=== PATIENT | female | born 1925 | race Caucasian/White ===

== ENCOUNTER 2016-06-30 12:02 | Inpatient (IN) | payer BC ==
--- NOTE | 2016-06-30 12:45 | PDOC ---
History of Present Illness - General History Source: Patient, Family Exam Limitations: No Limitations - History of Present Illness Initial Comments: 06/30/16 14:56 The patient is a 89 year old female, with a significant past medical history of hypertension and hyperlipidemia, who presents to the emergency department with abdominal pain since yesterday and rectal bleed since this morning. As per daughter the patients stool was brown with dark red mixed in it. She reports left lower abdominal pain that worsened today. Patient reports nausea but denies vomiting. She denies palpitations, chest pain, shortness of breath, headache, diaphoresis and dizziness. She denies fever, chills, nausea, vomit, diarrhea and constipation. She denies dysuria, frequency, urgency and hematuria on ASA but not on other a/c. no recent travel or sick contacts. <Estrellita Soto - Last Filed: 06/30/16 19:17> - General History Source: Patient Exam Limitations: No Limitations - History of Present Illness Travel History: No <David Laboy - Last Filed: 07/01/16 09:19> - General Chief Complaint: Rectal Bleed Stated Complaint: RECTAL BLEEDING Time Seen by Provider: 06/30/16 12:42 Past History <Estrellita Soto - Last Filed: 06/30/16 19:17> - Past Medical History HTN: Yes Hypercholesterolemia: Yes Suicide Attempt (Hx): No Other medical history: ARTHRITIS - Surgical History Abdominal Surgery: Yes Cholecystectomy: Yes - Immunization History Immunization Up to Date: Yes - Psycho/Social/Smoking Cessation Hx Anxiety: No Suicidal Ideation: No Smoking History: Never smoked Have you smoked in the past 12 months: No Hx Alcohol Use: No Drug/Substance Use Hx: No Substance Use Type: None <David Laboy - Last Filed: 07/01/16 09:19> - Past Medical History Allergies/Adverse Reactions: Allergies Allergy/AdvReac Type Severity Reaction Status Date / Time No Known Allergies Allergy Verified 06/30/16 12:12 Home Medications: Ambulatory Orders Atenolol [Tenormin -] 50 mg PO DAILY 06/16/14 Hydralazine HCl 25 mg PO BID 06/16/14 Methotrexate [Mexate -] 5 tab PO Q7D 06/16/14 Prednisone [Deltasone -] 2.5 mg PO BID 06/16/14 Folic Acid 1 mg PO DAILY 12/29/15 Tramadol HCl 50 mg PO BID PRN 12/29/15 Aspirin [ASA -] 81 mg PO DAILY 06/30/16 Review of Systems - Review of Systems Able to Perform ROS?: Yes Comments:: 06/30/16 14:57 CONSTITUTIONAL: No reported: Fever, Chills, Diaphoresis, Generalized Weakness, Malaise, Loss of Appetite HEENT: No reported: Rhinorrhea, Nasal Congestion, Throat Pain, Throat Swelling, Difficulty Swallowing, Mouth Swelling, Ear Pain, Eye Pain, Visual Changes CARDIOVASCULAR: No reported: Chest Pain, Syncope, Palpitations, Irregular Heart Rate, Lightheadedness, Peripheral Edema RESPIRATORY: No reported: Cough, Shortness of Breath, SOB with Exertion, Orthopnea, Wheezing , Stridor, Hemoptysis GASTROINTESTINAL: Reported: Abdominal pain, nausea, hematochezia No reported: Abdominal Distension, Vomiting, Diarrhea, Constipation, Melena GENITOURINARY: No reported: Dysuria, Frequency, Urgency, Hesitancy, Flank Pain, Genital Pain MUSCULOSKELETAL: No reported: Myalgia, Arthralgia, Joint Swelling, Back pain, Neck Pain SKIN: No reported: Rash, Itching, Pallor HEMATOLOGIC/IMMUNOLOGIC: No reported: Easy Bleeding, Easy Bruising, Lymphadenopathy, Frequent infections ENDOCRINE: No reported: Unexplained Weight Gain, Unexplained Weight Loss, Heat Intolerance , Cold Intolerance NEUROLOGIC: No reported: Headache, Focal Weakness, Paresthesias, Vertigo, Lightheadedness, Unsteady Gait, Seizure, Mental Status Changes, Incontinence PSYCHIATRIC: No reported: Anxiety, Depression <Estrellita Soto - Last Filed: 06/30/16 19:17> *Physical Exam - Vital Signs Last Vital Signs Temp Pulse Resp BP Pulse Ox 97.2 F L 58 L 20 121/56 100 06/30/16 12:10 06/30/16 12:10 06/30/16 12:10 06/30/16 12:10 06/30/16 12:10 - Physical Exam Comments: 06/30/16 14:57 GENERAL: The patient is awake, alert, and fully oriented, Nontoxic - in no acute distress. HEAD: Normocephalic, atraumatic. EYES: extraocular movements intact, sclera anicteric, conjunctiva clear. ENT: Normal voice, Moist mucous membranes. NECK: Normal range of motion, No JVD LUNGS: Breath sounds equal, clear to auscultation bilaterally. No wheezes, no rhonchi, no rales. HEART: Regular rate and rhythm, normal S1 and S2 without murmur, rub or gallop. ABDOMEN: +mild lower abdominal tenderness. Soft, normoactive bowel sounds. No guarding, no rebound. No masses. No CVA tenderness EXTREMITIES: Normal range of motion, no edema. No clubbing or cyanosis. No cords , erythema, or tenderness. NEUROLOGICAL: No facial asymmetry, Normal speech, normal gait. PSYCH: Normal mood, normal affect. SKIN: Warm, Dry, normal turgor. Rectal exam: maroon like stool, No hemorrhoids <Estrellita Soto - Last Filed: 06/30/16 19:17> - Vital Signs Last Vital Signs Temp Pulse Resp BP Pulse Ox 97.2 F L 58 L 20 121/56 100 06/30/16 12:10 06/30/16 12:10 06/30/16 12:10 06/30/16 12:10 06/30/16 12:10 <David Laboy - Last Filed: 07/01/16 09:19> Heart Score/ECG Review - ECG Impressions Comment:: 06/30/16 19:31 Twelve-lead EKG was performed and reviewed by me. There is normal sinus rhythm with a normal rate. PACs noted The axis is normal. Short OH interval There is normal R wave progression There are no ST or T wave abnormalities. <David Laboy - Last Filed: 07/01/16 09:19> ED Treatment Course - LABORATORY CBC & Chemistry Diagram: 06/30/16 12:55 06/30/16 12:55 - ADDITIONAL ORDERS Additional order review: Laboratory Results 06/30/16 06/30/16 06/30/16 12:55 12:55 12:55 INR 1.04 Sodium 135 L Potassium 4.2 Chloride 97 L Carbon Dioxide 26 Anion Gap 12 BUN 27 H Creatinine 1.3 H Creat Clearance w eGFR 38.57 Random Glucose 170 H D Calcium 9.6 Total Bilirubin 0.8 AST 25 ALT 22 D Alkaline Phosphatase 60 Total Protein 6.7 Albumin 3.9 D Blood Type O POSITIVE Antibody Screen Negative 06/30/16 12:55 RBC 4.08 MCV 100.4 H MCHC 33.6 RDW 14.6 MPV 11.0 Neutrophils % 91.5 H D Lymphocytes % 4.0 L D Monocytes % 4.0 Eosinophils % 0.0 D Basophils % 0.5 - RADIOLOGY Radiology Studies Ordered: 06/30/16 18:16 EXAM#: CT/ABDOMEN PELVIS CT WITH CONTR Abdomen and pelvis CT with intravenous contrast Clinical information: left lower quadrant pain, rectal bleeding In comparison to a previous CT study of 12/30/2015 interval development of concentric continuous wall edema is noted involving the ascending, transverse and descending segments of the colon consistent with acute colitis. There is mild pericolonic edema. Equivocal mild involvement of the sigmoid colon is noted. There is again visualization of extensive sigmoid diverticulosis without evidence of acute diverticulitis. There has been interval resolution of a small amount of free fluid within the pelvic cul-de-sac. Apparent mildly increased common bile duct dilatation is noted with a current diameter of 1.2 cm, previously 0.9 cm. No gross choledocholithiasis is identified. There is mild intrahepatic biliary tract dilatation which is also probably mildly increased. As on the prior study the patient is status post cholecystectomy. The remainder of the exam demonstrates no definite interval change. No evidence of pneumoperitoneum or bowel obstruction. Stable 1 cm left adrenal adenoma. The liver, spleen, pancreas, right adrenal gland is no discrete abnormality. 6 cm left renal cortical cyst containing a thin curvilinear calcification. 2.7 cm simple right renal cortical cyst. No aortic aneurysm. Minimal to mild multilevel chronic stable lumbar vertebral body compression fractures without bony retropulsion. Impression: Acute colitis is identified as discussed. In comparison to a prior CT exam of 12/30/2015 there has been apparent mildly increased intrahepatic and extrahepatic biliary tract dilatation. Less likely this apparent change may be artifactual given that the prior study was performed without intravenous contrast. Consider MRI/ MRCP evaluation. Status post cholecystectomy as on the prior exam. Cardiomegaly. <Estrellita Soto - Last Filed: 06/30/16 19:17> - LABORATORY CBC & Chemistry Diagram: 07/01/16 06:00 07/01/16 06:00 <David Laboy - Last Filed: 07/01/16 09:19> Medical Decision Making - Medical Decision Making 06/30/16 18:32 A page was placed to Dr. Poon at his service. 06/30/16 18:48 A second page was placed to Dr. Poon at his service. Awaiting for a call back. 06/30/16 19:04 Third page was placed to Dr. Poon at his service, he was paged at 3 different numbers with no response. Awaiting a call back. 06/30/16 19:[address] Poon. <Estrellita Soto - Last Filed: 06/30/16 19:17> - Medical Decision Making 06/30/16 13:40 89-year-old female hx of htn, hl, presents with 1 day of LLQ pain assoicated with rectal bleeding/maroon like stool since this morning - the patient denies any fevers, chills endorses nausea but denies any vomiting. On exam the patient has mild left lower quadrant tenderness, otherwise in no acute distress the patient's stool is maroon colored, guaiac pending. We'll obtain a CT of the abdomen to rule out diverticulosis. Patient does have a leukocytosis on her blood work Will give the patient's gentle hydration as well as small dose of morphine for pain control 06/30/16 18:15 pts abdomen c/w acute colitis will give flagyl levaquin and admit for further management There was also mild diltation of intrahepqatic and extrahepatic bilari tract diliation - will have GI assess patient regarding further testing/imaging. will page dr. arias regarding admission 06/30/16 19:17 case was discussed with dr. dominguez agreed with admission requested GI consult - consult placed for dr. echols Case discussed in detail with admitting physician including history, physical exam and ancillary studies. Admitting physician has assumed care for the patient, will follow all pending diagnostics and will complete the evaluation and treatment. A portion of this note was documented by kandis payan under my direction. I have reviewed the details of the note, within reason, and agree with the documentation with the following case summary and management plan written by me <David Laboy - Last Filed: 07/01/16 09:19> *DC/Admit/Observation/Transfer - Attestations Scribe Attestion: 06/30/16 14:57 Documentation prepared by KANDIS Snider, acting as general medical practitioner for David Laboy MD. <Estrellita Soto - Last Filed: 06/30/16 19:17> - Discharge Dispostion Admit: Yes <David Laboy - Last Filed: 07/01/16 09:19> Diagnosis at time of Disposition: Colitis - Referrals
[2016-06-30 13:03] LABS: BASOPHIL 0.5 % (0-2.0); MCH 33.7 pg (25.7-33.7); MCHC 33.6 g/dl (32.0-36.0); MEAN CELL VOLUME 100.4 fl (80-96); NEUTROPHILS 91.5 % (42.8-82.8); PLATELET COUNT 191 K/MM3 (134-434); RDW 14.6 % (11.6-15.6); WHITE BLOOD COUNT 14.5 K/mm3 (4.0-10.0)
[2016-06-30 13:17] LABS: INR 1.04 (0.82-1.09); PROTHROMBIN TIME (PATIENT) 11.5 SEC (9.98-11.88)
[2016-06-30 13:25] LABS: ALBUMIN 3.9 g/dl (3.4-5.0); BILIRUBIN,TOTAL 0.8 mg/dL (0.2-1.0); CALCIUM 9.6 mg/dL (8.5-10.1); CREATININE 1.3 mg/dL (0.55-1.02)
[2016-06-30 13:27] LABS: TOT PROT 6.7 g/dl (6.4-8.2)
[2016-06-30] MEDS ORDERED: SODIUM CHLORIDE 500 ML IV STA (13:39)
[2016-06-30] MEDS ORDERED: morphine CARPU-JECT 2 MG/1 ML DISP.SYRIN IVPUSH ONE (13:40)
[2016-06-30] MEDS ORDERED: ONDANSETRON 4 MG/2 ML VIAL IVPB ONE (13:41)
[2016-06-30] MEDS ORDERED: ONDANSETRON 4 MG/2 ML VIAL ONE (14:59)
[2016-06-30] MEDS ORDERED: morphine CARPU-JECT 2 MG/1 ML DISP.SYRIN ONE (14:59)
--- NOTE | 2016-06-30 16:14 | EKG ---
Test Reason : Blood Pressure : / mmHG Vent. Rate : 060 BPM Atrial Rate : 060 BPM P-R Int : 108 ms QRS Dur : 070 ms QT Int : 444 ms P-R-T Axes : 043 021 040 degrees QTc Int : 444 ms SINUS RHYTHM WITH SHORT CA WITH PREMATURE ATRIAL COMPLEXES OTHERWISE NORMAL ECG WHEN COMPARED WITH ECG OF 16-JUN-2014 17:29, PREMATURE ATRIAL COMPLEXES ARE NOW PRESENT CRITERIA FOR SEPTAL INFARCT ARE NO LONGER PRESENT ST NO LONGER DEPRESSED IN ANTERIOR LEADS NONSPECIFIC T WAVE ABNORMALITY, IMPROVED IN ANTERIOR LEADS Confirmed by SONY SOLORIO MD ([id number]) on 06/30/2016 4:14:06 PM Referred By: Confirmed By:SONY SOLORIO MD
[2016-06-30] MEDS ORDERED: METRONIDAZOLE 500 MG PREMIXED 100 ML IVPB ONE ×2 (18:14→19:14)
[2016-06-30] MEDS ORDERED: LEVOFLOXACIN 750 MG IVPB 150 ML IVPB ONE (18:14)
[2016-06-30] MEDS ORDERED: METHOTREXATE 2.5 MG TABLET PO SCH (20:15)
[2016-06-30] MEDS ORDERED: predniSONE 2.5 MG TABLET PO SCH (22:00)
[2016-07-01] MEDS: SODIUM CHLORIDE 1,000 ML IV SCH ×2 (01:58→21:34)
[2016-07-01] MEDS: METRONIDAZOLE PREMIXED IVPB 50 ML IVPB SCH ×3 (01:59→17:51)
[2016-07-01] MEDS: predniSONE 5 MG TABLET (UD) PO SCH ×3 (01:59→21:30)
[2016-07-01] MEDS: hydrALAZINE HCL 25 MG TABLET (FP) PO SCH ×3 (01:59→21:33)
[2016-07-01 03:41] VITALS: BMI 22.6
[2016-07-01 07:26] LABS: MCH 33.4 pg (25.7-33.7); MCHC 33.8 g/dl (32.0-36.0); MEAN CELL VOLUME 98.8 fl (80-96); PLATELET COUNT 168 K/MM3 (134-434); RDW 14.6 % (11.6-15.6); WHITE BLOOD COUNT 17.1 K/mm3 (4.0-10.0)
[2016-07-01 08:08] LABS: ALBUMIN 3.2 g/dl (3.4-5.0); BILIRUBIN,TOTAL 1.1 mg/dL (0.2-1.0); CALCIUM 8.8 mg/dL (8.5-10.1); CREATININE 1.1 mg/dL (0.55-1.02); PHOSPHOROUS 2.9 mg/dL (2.5-4.9)
[2016-07-01 08:09] LABS: TOT PROT 5.7 g/dl (6.4-8.2)
--- NOTE | 2016-07-01 08:22 | HP ---
Admitting History and Physical - Admission Chief Complaint: 89 y.o. F was admitted to [facility] with abdominal pain, predominately LLQ and rectal bleeding. History of Present Illness: Temporal arteriitis. Carotid stenosis. Right eye blindness. HLD. HTN S/p Keisha Osteoporosis. Chronic anterior neck discomfort. Dementia/OMS. 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 No: Seizure Cardiovascular: Yes: HTN, Hyperlipdemia Pulmonary: No: Bronchitis, Pulmonary Embolus, Pulmonary Fibrosis Gastrointestinal: No: Cancer, Irritable Bowel Disease, Pancreatitis, Ulcerative Colitis Renal/: No: Renal Failure, Renal Inusuff Reproductive: Yes: Postmenopausal Heme/Onc: No: Anemia, B12 Deficiency, Bleeding Disorder, Cancer, Current Chemotherapy, Current Radiation Therapy, Hemochromatosis, Hypercoaguable State, Myeloproliferative Synd, Sickle Cell Disease, Sickle Cell Trait, Thrombocytopenia, Other Infectious Disease: No: AIDS, C-Diff, Herpes Zoster, HIV, MRSA, STD's, Tuberculosis, VREF, Other Psych: Yes: Anxiety, Depression Musculoskeletal: Yes: Chronic low back pain (compression fx), Osteoarthritis, Other (Chronic anterior neck pain) Rheumatology: Yes: Other (temporal arteriitis) ENT: No: Allergic Rhinitis, Sinusitis, Other Endocrine: No: [place]'s Disease, [place]'s Disease, Diabetes Insipidus, Diabetes Mellitus, Hyperparathyroidism, Hyperthyroidism, Hypothyroidism, Osteopenia, SIADH, Other Dermatology: No: Basal Cell, Cellulitis, Eczema, Melanoma, Psoriasis, Squamous Cell, Other - Past Surgical History Past Surgical History: Yes: Cholecystectomy - Smoking History Smoking history: Never smoked Have you smoked in the past 12 months: No - Alcohol/Substance Use Hx Alcohol Use: No History of Substance Use: denies: None, Cocaine, Heroin, Marijuana, Prescription , Tranquilizers - Social History Usual Living Arrangement: Yes: With Child ADL: Family Assistance History of Recent Travel: No Home Medications - Allergies Allergies/Adverse Reactions: Allergies Allergy/AdvReac Type Severity Reaction Status Date / Time No Known Allergies Allergy Verified 06/30/16 12:12 - Home Medications Home Medications: Ambulatory Orders Atenolol [Tenormin -] 50 mg PO DAILY 06/16/14 Hydralazine HCl 25 mg PO BID 06/16/14 Methotrexate [Mexate -] 5 tab PO Q7D 06/16/14 Prednisone [Deltasone -] 2.5 mg PO BID 06/16/14 Folic Acid 1 mg PO DAILY 12/29/15 Tramadol HCl 50 mg PO BID PRN 12/29/15 Aspirin [ASA -] 81 mg PO DAILY 06/30/16 Family Disease History - Family Disease History Family History: Unremarkable Review of Systems Unable to obtain ROS, reason: Poor historia, cognitive Physical Examination Vital Signs: Vital Signs Temperature 97.9 F 07/01/16 05:39 Pulse Rate 82 07/01/16 05:39 Respiratory Rate 18 07/01/16 05:39 Blood Pressure 135/66 07/01/16 05:39 O2 Sat by Pulse Oximetry (%) 100 06/30/16 19:08 Constitutional: Yes: Anxious, Mild Distress. No: Obese, Pallor Eyes: Yes: Conjunctiva Clear. No: Occular Prosthesis, Ptosis, Sclera Icterus, Tearing HENT: Yes: Atraumatic, Normocephalic Neck: Yes: Supple, Trachea Midline. No: Decreased ROM, Lymphadenopathy Cardiovascular: Yes: Pulse Irregular (APC), S1, S2. No: Tachycardia, JVD Respiratory: Yes: Regular, CTA Bilaterally. No: Diminished, Rales Gastrointestinal: Yes: Normal Bowel Sounds, Soft, Tenderness (LLQ). No: Abdomen , Obese, Ascites, Palpable Mass, Tenderness, Epigastrium, Tenderness, Rebound, Vomiting ...Rectal Exam: Yes: Other (No blood, small amount of small brown stool) Renal/: No: Anuria, CVA Tenderness - Left, CVA Tenderness - Right Breast(s): Yes: WNL Musculoskeletal: Yes: Back Pain, Muscle Weakness. No: Joint Swelling Extremities: No: Calf Tenderness, Cold, Cyanosis Edema: No Integumentary: Yes: WNL Neurological: Yes: Alert, Oriented. No: Aphasia, Ataxia, Dysarthria ...Motor Strength: WNL Psychiatric: Yes: Alert, Oriented. No: Agitated, Suicidal Ideation Labs: CBC, BMP 07/01/16 06:00 07/01/16 06:00 Laboratory Results - last 24 hr 06/30/16 06/30/16 06/30/16 12:55 12:55 12:55 WBC 14.5 H D RBC 4.08 Hgb 13.8 D Hct 41.0 D MCV 100.4 H MCHC 33.6 RDW 14.6 Plt Count 191 MPV 11.0 Neutrophils % 91.5 H D Lymphocytes % 4.0 L D Monocytes % 4.0 Eosinophils % 0.0 D Basophils % 0.5 INR 1.04 Sodium 135 L Potassium 4.2 Chloride 97 L Carbon Dioxide 26 Anion Gap 12 BUN 27 H Creatinine 1.3 H Creat Clearance w eGFR 38.57 Random Glucose 170 H D Calcium 9.6 Phosphorus Total Bilirubin 0.8 AST 25 ALT 22 D Alkaline Phosphatase 60 Total Protein 6.7 Albumin 3.9 D Stool Occult Blood Blood Type Antibody Screen 06/30/16 06/30/16 07/01/16 12:55 14:36 06:00 WBC 17.1 H RBC 3.81 Hgb 12.7 Hct 37.6 MCV 98.8 H MCHC 33.8 RDW 14.6 Plt Count 168 MPV 11.0 Neutrophils % Lymphocytes % Monocytes % Eosinophils % Basophils % INR Sodium Potassium Chloride Carbon Dioxide Anion Gap BUN Creatinine Creat Clearance w eGFR Random Glucose Calcium Phosphorus Total Bilirubin AST ALT Alkaline Phosphatase Total Protein Albumin Stool Occult Blood Positive Blood Type O POSITIVE Antibody Screen Negative 07/01/16 06:00 WBC RBC Hgb Hct MCV MCHC RDW Plt Count MPV Neutrophils % Lymphocytes % Monocytes % Eosinophils % Basophils % INR Sodium 132 L Potassium 4.0 Chloride 100 Carbon Dioxide 25 Anion Gap 7 L BUN 21 H D Creatinine 1.1 H Creat Clearance w eGFR 46.77 Random Glucose 124 H D Calcium 8.8 Phosphorus 2.9 Total Bilirubin 1.1 H D AST 25 ALT 24 Alkaline Phosphatase 49 Total Protein 5.7 L Albumin 3.2 L Stool Occult Blood Blood Type Antibody Screen Imaging - Results Chest X-ray: Report Reviewed Cat Scan: Report Reviewed EKG: Image Reviewed Problem List - Problems (1) Colitis Assessment/Plan: R/o infectious colitis, r/o ischemic, diverticular? not seen on CT Clear liquids, IV Abx, GI consult. Code(s): K52.9 - NONINFECTIVE GASTROENTERITIS AND COLITIS, UNSPECIFIED (2) Temporal arteritis Assessment/Plan: Continue Methotrexate, prednisone. Code(s): M31.6 - OTHER GIANT CELL ARTERITIS
[2016-07-01] MEDS ORDERED: PT OWN MED DRAWER 7, Y5N ONE ×2 (11:35→15:15)
[2016-07-01] MEDS: ATENOLOL 50 MG TABLET (FP) PO SCH (12:00)
[2016-07-01] MEDS: LEVOFLOXACIN 250 MG IVPB 50 ML IVPB SCH (12:00)
[2016-07-01] MEDS: FOLIC ACID 1 MG TABLET (FP) PO SCH (12:00)
--- NOTE | 2016-07-01 12:01 | CONSULT ---
Consult Consult Specialty:: Gastroenterology ( covering Dr Manzo) Referred by:: Dr. Gay Reason for Consultation:: Rectal bleeding - History of Present Illness Chief Complaint: Abdominal pain and rectal bleeding History of Present Illness: 89W developed abdominal pain and a single episode of hematochezia yesterday. No bleeding or pain today. Her granddaughter served as school adjustment counselor and in providing the history. Her son of colon cancer in his 60's. It is unknown whether or not Roselyn has ever had a colonoscopy. 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 Cardio/Vascular: Yes: HTN, Hyperlipdemia Gastrointestinal: Yes: Diverticulosis Renal/: Yes: Other (renal cyst) Reproductive: Yes: Fibroids (vaginal hysterectomy) Musculoskeletal: Yes: Chronic low back pain (compression fx), Osteoarthritis, Other (Chronic anterior neck pain) Rheumatology: Yes: Other (temporal arteritis) Endocrine: Yes: Other (left adrenal adenoma) - Past Surgical History Past Surgical History: Yes: Cholecystectomy, Hysterectomy (vaginal for fibroids) - Alcohol/Substance Use Hx Alcohol Use: No History of Substance Use: denies: None, Cocaine, Heroin, Marijuana, Prescription , Tranquilizers - Smoking History Smoking history: Never smoked Have you smoked in the past 12 months: No - Social History Usual Living Arrangement: With Child ADL: Family Assistance 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 Place of : Other ([place]) History of Recent Travel: No Home Medications - Allergies Allergies/Adverse Reactions: Allergies Allergy/AdvReac Type Severity Reaction Status Date / Time No Known Allergies Allergy Verified 06/30/16 12:12 - Home Medications Home Medications: Ambulatory Orders Atenolol [Tenormin -] 50 mg PO DAILY 06/16/14 Hydralazine HCl 25 mg PO BID 06/16/14 Methotrexate [Mexate -] 5 tab PO Q7D 06/16/14 Prednisone [Deltasone -] 2.5 mg PO BID 06/16/14 Folic Acid 1 mg PO DAILY 12/29/15 Tramadol HCl 50 mg PO BID PRN 12/29/15 Aspirin [ASA -] 81 mg PO DAILY 06/30/16 Family Disease History - Family Disease History Family Disease History: CA: Brother (prostate cancer), Son ( of colon cancer ), Other: Father (lived to 92) Review of Systems - Review of Systems Constitutional: reports: Unintentional Wgt. Loss, Other (headaches and visual disturbances requring steroids for temporal arteritis) HENT: reports: No Symptoms, Other (neck pain chronically) Cardiovascular: reports: No Symptoms Respiratory: reports: No Symptoms Gastrointestinal: reports: Abdominal Pain, Rectal Bleeding Genitourinary: reports: No Symptoms Physical Exam-GI Vital Signs: Vital Signs Temperature 97.9 F 07/01/16 05:39 Pulse Rate 82 07/01/16 05:39 Respiratory Rate 18 07/01/16 05:39 Blood Pressure 135/66 07/01/16 05:39 O2 Sat by Pulse Oximetry (%) 100 06/30/16 19:08 Constitutional: Yes: Calm Eyes: Yes: Conjunctiva Clear HENT: Yes: Atraumatic Neck: Yes: Supple Cardiovascular: Yes: Regular Rate and Rhythm Gastrointestinal Inspection: Yes: Scars (healed oblique RUQ incision) ...Auscultate: Yes: Normoactive Bowel Sounds ...Palpate: Yes: Soft, Other (nontender) ...Percussion: Yes: Tympanitic ...Rectal Exam: Yes: Guaiac Positive (blood tinged brown guaiac positive stool, no masses) Musculoskeletal: Yes: Back Pain Edema: No Labs: CBC, BMP 07/01/16 06:00 07/01/16 06:00 INR, PTT INR 1.04 (0.82-1.09) 06/30/16 12:55 Imaging - Results Cat Scan: Image Reviewed (concentric continuous thickening of right, transverse and descending colon, diverticulosis, dilated CBD to 1/2cm but no obvious pancreatic mass, left adrenal adenoma) Problem List - Problems (1) Rectal bleeding Code(s): K62.5 - HEMORRHAGE OF ANUS AND RECTUM (2) Family history of colon cancer Code(s): Z80.0 - FAMILY HISTORY OF MALIGNANT NEOPLASM OF DIGESTIVE ORGANS (3) Diverticulosis Code(s): K57.90 - DVRTCLOS OF INTEST, PART UNSP, W/O PERF OR ABSCESS W/O BLEED (4) Dilated bile duct Code(s): K83.8 - OTHER SPECIFIED DISEASES OF BILIARY TRACT Assessment/Plan The clinical presentation and CT finding are most consistent with ischemic colitis. The bleeding appears to have subsided. There is a FH of colon cancer. I have explained that Dr Manzo will return tomorrow and can discuss potential colonoscopy. He can also decide on whether or not to pursue an MRCP given the bile duct dilation. Will advance to full liquids.
[2016-07-01] MEDS: traMADol HCL 50 MG TABLET PO PRN (21:33)
[2016-07-02] MEDS: METRONIDAZOLE PREMIXED IVPB 50 ML IVPB SCH ×3 (01:22→18:06)
[2016-07-02 07:43] LABS: BASOPHIL 0.2 % (0-2.0); MCH 33.5 pg (25.7-33.7); MCHC 33.3 g/dl (32.0-36.0); MEAN CELL VOLUME 100.4 fl (80-96); MEAN PLT VOLUME 11.1 fl (7.5-11.1); NEUTROPHILS 87.9 % (42.8-82.8); PLATELET COUNT 133 K/MM3 (134-434); WHITE BLOOD COUNT 15.7 K/mm3 (4.0-10.0)
[2016-07-02 07:51] LABS: AMYLASE 57 U/L (25-115)
[2016-07-02 08:05] LABS: ALBUMIN 2.7 g/dl (3.4-5.0); BILIRUBIN,TOTAL 0.9 mg/dL (0.2-1.0); CALCIUM 8.1 mg/dL (8.5-10.1); CREATININE 0.9 mg/dL (0.55-1.02); TOT PROT 4.8 g/dl (6.4-8.2)
--- NOTE | 2016-07-02 08:06 | PN ---
Progress Note (short form) - Note Progress Note: Less abdominal pain today. Still c/o chronic anterior neck discomfort. seen by dr Snow yesterday, Dr Manzo to follow today. Vital Signs (72 hours) 06/30/16 06/30/16 06/30/16 12:10 13:07 18:46 Temperature 97.2 F L 98.0 F Pulse Rate 58 L 82 Pulse Rate [ Right Radial] Respiratory 20 20 Rate Blood Pressure 121/56 168/74 Blood Pressure [Left Arm] O2 Sat by Pulse 100 100 Oximetry (%) 06/30/16 06/30/16 06/30/16 18:59 19:08 22:00 Temperature 97.6 F 97.7 F 98.0 F Pulse Rate 64 Pulse Rate [ 61 62 Right Radial] Respiratory 16 16 20 Rate Blood Pressure 168/74 Blood Pressure 116/61 123/61 [Left Arm] O2 Sat by Pulse 100 100 Oximetry (%) 07/01/16 07/01/16 07/01/16 05:39 09:00 10:00 Temperature 97.9 F 98.6 F Pulse Rate 82 78 Pulse Rate [ Right Radial] Respiratory 18 18 Rate Blood Pressure 135/66 152/67 Blood Pressure [Left Arm] O2 Sat by Pulse 100 Oximetry (%) 07/01/16 07/01/16 07/01/16 14:22 19:08 20:08 Temperature 98.5 F 97.7 F Pulse Rate 75 90 Pulse Rate [ Right Radial] Respiratory 20 16 Rate Blood Pressure 166/67 164/79 Blood Pressure [Left Arm] O2 Sat by Pulse 100 Oximetry (%) 07/01/16 07/02/16 22:00 06:07 Temperature 98.8 F 97.6 F Pulse Rate 87 92 H Pulse Rate [ Right Radial] Respiratory 20 18 Rate Blood Pressure 161/75 139/70 Blood Pressure [Left Arm] O2 Sat by Pulse Oximetry (%) Awake, alert. Neck-no JVD Lungs are clear/ Heart S1S2 regular Abdomen soft, mild LLQ tenderness Ext-no CCE Laboratory Results - last 24 hr 07/01/16 07/02/16 06:00 06:15 Sodium 132 L Potassium 4.0 Chloride 100 Carbon Dioxide 25 Anion Gap 7 L BUN 21 H D Creatinine 1.1 H Creat Clearance w eGFR 46.77 Random Glucose 124 H D Calcium 8.8 Phosphorus 2.9 Total Bilirubin 1.1 H D AST 25 ALT 24 Alkaline Phosphatase 49 Total Protein 5.7 L Albumin 3.2 L Total Amylase 57 Lipase 104 Current Active Problems Problem Status Diagnosed Colitis Acute Dilated bile duct Acute Diverticulosis Acute Family history of colon cancer Acute Rectal bleeding Acute Plan F/u with GI re possible colonoscopy, MRCP. Continue fluids Now on full liquid diet. Problem List - Problems (1) Colitis Code(s): K52.9 - NONINFECTIVE GASTROENTERITIS AND COLITIS, UNSPECIFIED (2) Temporal arteritis Code(s): M31.6 - OTHER GIANT CELL ARTERITIS
[2016-07-02] MEDS: ATENOLOL 50 MG TABLET (FP) PO SCH (10:46)
[2016-07-02] MEDS: predniSONE 5 MG TABLET (UD) PO SCH ×2 (10:46→23:00)
[2016-07-02] MEDS: LEVOFLOXACIN 250 MG IVPB 50 ML IVPB SCH (10:46)
[2016-07-02] MEDS: FOLIC ACID 1 MG TABLET (FP) PO SCH (10:46)
[2016-07-02] MEDS: hydrALAZINE HCL 25 MG TABLET (FP) PO SCH ×2 (10:46→21:05)
[2016-07-02] MEDS ORDERED: PT OWN MED DRAWER 7, Y5N ONE ×2 (14:19→17:55)
[2016-07-02] MEDS: SODIUM CHLORIDE 1,000 ML IV SCH ×2 (16:10→20:47)
[2016-07-02] MEDS: traMADol HCL 50 MG TABLET PO PRN (21:05)
[2016-07-03] MEDS: METRONIDAZOLE PREMIXED IVPB 50 ML IVPB SCH ×3 (01:30→18:55)
[2016-07-03] MEDS: hydrALAZINE HCL 25 MG TABLET (FP) PO SCH ×3 (08:58→21:34)
[2016-07-03] MEDS: ATENOLOL 50 MG TABLET (FP) PO SCH (08:59)
[2016-07-03] MEDS: predniSONE 5 MG TABLET (UD) PO SCH ×2 (08:59→21:34)
[2016-07-03] MEDS: LEVOFLOXACIN 250 MG IVPB 50 ML IVPB SCH (09:00)
[2016-07-03] MEDS: FOLIC ACID 1 MG TABLET (FP) PO SCH (09:00)
[2016-07-03] MEDS: amLODIPine BESYLATE 5 MG TABLET (FP) PO SCH (10:08)
--- NOTE | 2016-07-03 11:15 | PN ---
Progress Note (short form) - Note Progress Note: Remains very anxious. Has abdominal discomfort. BM-no blood today. Chronic neck pain, chest pain. Vital Signs Period Temp Pulse Resp BP Sys/Cruz Pulse Ox Last 24 Hr 97.6 F-99.6 F 73-123 20-20 129-199/47-113 100 Now BP 142/64. Started also on Norvasc 5 mg. Neck bruits. No JVD. Lungs are clear. Heat s1s2 92 BPM, 2/6 SM ABDOMEN SOFT, aCTIVE BS, LLQ tenderness. Ext-no CCE Laboratory Results - last 24 hr 07/02/16 06:15 CA 19-9 Antigen 12 Current Active Problems Problem Status Diagnosed Colitis Acute Dilated bile duct Acute Diverticulosis Acute Family history of colon cancer Acute Rectal bleeding Acute Plan f/u with Dr Manzo re colitis. IV ABX. EKG today. After GI eval will deside re diet advancement. Problem List - Problems (1) Colitis Code(s): K52.9 - NONINFECTIVE GASTROENTERITIS AND COLITIS, UNSPECIFIED (2) Temporal arteritis Code(s): M31.6 - OTHER GIANT CELL ARTERITIS
--- NOTE | 2016-07-03 12:00 | PN ---
GI Progress Note Subjective: GASTROENTEROLOGY NO PAIN NO BLEEDING NO FEVER CBC STABLE HEPATIC FUNCTION PANEL NORMAL' CA19-9 NORMAL VALUE PATIENT EATING WELL - Objective Vital Signs: Vital Signs Temperature 97.9 F 07/03/16 08:30 Pulse Rate 113 H 07/03/16 08:55 Respiratory Rate 20 07/03/16 08:55 Blood Pressure 142/64 07/03/16 10:00 O2 Sat by Pulse Oximetry (%) 100 07/02/16 20:38 Constitutional: No Distress, Calm Eyes: Yes: Conjunctiva Clear HENT: Yes: Normocephalic Neck: Yes: Supple Cardiovascular: Yes: Regular Rate and Rhythm Respiratory: Yes: Regular Gastrointestinal Inspection: Yes: Hernia ...Auscultate: Yes: Normoactive Bowel Sounds ...Palpate: Yes: Soft Extremities: Yes: WNL Labs: CBC, BMP 07/02/16 06:15 07/02/16 06:15 INR, PTT INR 1.04 (0.82-1.09) 06/30/16 12:55 Laboratory Tests 06/30/16 06/30/16 07/01/16 12:55 14:36 06:00 WBC 17.1 H RBC 3.81 Hgb 12.7 Hct 37.6 MCV 98.8 H MCHC 33.8 RDW 14.6 Plt Count 168 MPV 11.0 Neutrophils % Lymphocytes % Monocytes % Eosinophils % Basophils % INR 1.04 Sodium Potassium Chloride Carbon Dioxide Anion Gap BUN Creatinine Creat Clearance w eGFR Random Glucose Calcium Total Bilirubin AST ALT Alkaline Phosphatase Total Protein Albumin Total Amylase Lipase CA 19-9 Antigen Stool Occult Blood Positive 07/02/16 07/02/16 07/02/16 06:15 06:15 06:15 WBC 15.7 H RBC 3.51 L Hgb 11.7 Hct 35.2 MCV 100.4 H MCHC 33.3 RDW 15.0 Plt Count 133 L D MPV 11.1 Neutrophils % 87.9 H Lymphocytes % 5.8 L D Monocytes % 6.1 Eosinophils % 0.0 Basophils % 0.2 INR Sodium 138 Potassium 3.6 Chloride 104 Carbon Dioxide 26 Anion Gap 8 BUN 18 Creatinine 0.9 Creat Clearance w eGFR 58.95 Random Glucose 95 D Calcium 8.1 L Total Bilirubin 0.9 AST 25 ALT 20 Alkaline Phosphatase 40 L Total Protein 4.8 L Albumin 2.7 L Total Amylase 57 Lipase 104 CA 19-9 Antigen Stool Occult Blood 07/02/16 06:15 WBC RBC Hgb Hct MCV MCHC RDW Plt Count MPV Neutrophils % Lymphocytes % Monocytes % Eosinophils % Basophils % INR Sodium Potassium Chloride Carbon Dioxide Anion Gap BUN Creatinine Creat Clearance w eGFR Random Glucose Calcium Total Bilirubin AST ALT Alkaline Phosphatase Total Protein Albumin Total Amylase Lipase CA 19-9 Antigen 12 Stool Occult Blood Problem List - Problems (1) Ischemic colitis Assessment/Plan: NO SEQUELA FROM BOUT OF ISCHEMIA, BLOOD COUNTS OK, PATIENT EATING NO PAIN CONTINUE ABX, CAN D/C HOME IN AM OFFICE F/U IN 2 WEEKS COLONOSCOPY WAS PERFORMED YEARS AGO AND DIVERTICULOSIS ONLY, HAS ALWAYS BEEN RELUCTANT TO HAVE ANOTHER CAN DISCUSS AGAIN IN OFFICE BUT IF SHE HAS NO COMPLICATIONS FROM THIS MAY NOT REQUIRE ONE Code(s): K55.9 - VASCULAR DISORDER OF INTESTINE, UNSPECIFIED (2) Dilated bile duct Assessment/Plan: NO RUQ SYMPTOMS, LFT'S NEG, TUMOR MARKERS NEG WILL SEND FOR MRCP OUTPATIENT Code(s): K83.8 - OTHER SPECIFIED DISEASES OF BILIARY TRACT (3) Diverticulosis Assessment/Plan: FIBER DIET Code(s): K57.90 - DVRTCLOS OF INTEST, PART UNSP, W/O PERF OR ABSCESS W/O BLEED (4) Family history of colon cancer Code(s): Z80.0 - FAMILY HISTORY OF MALIGNANT NEOPLASM OF DIGESTIVE ORGANS (5) Rectal bleeding Assessment/Plan: ABOVE Code(s): K62.5 - HEMORRHAGE OF ANUS AND RECTUM
--- NOTE | 2016-07-03 16:12 | EKG ---
Test Reason : Blood Pressure : / mmHG Vent. Rate : 088 BPM Atrial Rate : 088 BPM P-R Int : 130 ms QRS Dur : 076 ms QT Int : 346 ms P-R-T Axes : 050 029 -01 degrees QTc Int : 418 ms SINUS RHYTHM WITH MARKED SINUS ARRHYTHMIA WITH OCCASIONAL PREMATURE VENTRICULAR COMPLEXES AND PREMATURE ATRIAL COMPLEXES NONSPECIFIC T WAVE ABNORMALITY ABNORMAL ECG WHEN COMPARED WITH ECG OF 30-JUN-2016 12:51, PREMATURE VENTRICULAR COMPLEXES ARE NOW PRESENT T WAVE VARIATION Confirmed by SAMMIE DAWN MD ([id number]) on 07/03/2016 4:11:51 PM Referred By: Dorina SALVADOR Confirmed By:SAMMIE DAWN MD
[2016-07-03] MEDS ORDERED: PT OWN MED DRAWER 7, Y5N ONE (18:02)
[2016-07-03] MEDS: traMADol HCL 50 MG TABLET PO PRN (21:35)
[2016-07-04] MEDS: METRONIDAZOLE PREMIXED IVPB 50 ML IVPB SCH ×2 (00:59→09:07)
[2016-07-04 05:06] VITALS: TEMP 98.2
[2016-07-04 07:08] LABS: ALBUMIN 2.6 g/dl (3.4-5.0); CALCIUM 8.1 mg/dL (8.5-10.1)
[2016-07-04 07:16] LABS: BILIRUBIN,TOTAL 0.6 mg/dL (0.2-1.0); TOT PROT 4.7 g/dl (6.4-8.2)
[2016-07-04 07:34] LABS: BASOPHIL 0.1 % (0-2.0); EOSINOPHIL 3.3 % (0-4.5); MCH 34.2 pg (25.7-33.7); MCHC 34.4 g/dl (32.0-36.0); MEAN CELL VOLUME 99.5 fl (80-96); MEAN PLT VOLUME 11.2 fl (7.5-11.1); NEUTROPHILS 85.3 % (42.8-82.8); PLATELET COUNT 113 K/MM3 (134-434); RDW 14.6 % (11.6-15.6); WHITE BLOOD COUNT 6.9 K/mm3 (4.0-10.0)
--- NOTE | 2016-07-04 08:09 | PN ---
Progress Note (short form) - Note Progress Note: Dr Manzo note appreciated, pt discussed. WBC-WNL Pt feels well. Confused Vital Signs Period Temp Pulse Resp BP Sys/Cruz Pulse Ox Last 24 Hr 97.9 F-98.4 F 71-123 20-20 139-199/64-113 97-98 Lungs Clear Heart S1S2 regular Abdomen soft NT Ext-no CCE. Laboratory Results - last 24 hr 07/04/16 07/04/16 05:35 05:35 WBC 6.9 D RBC 3.23 L Hgb 11.1 Hct 32.1 L MCV 99.5 H MCHC 34.4 RDW 14.6 Plt Count 113 L MPV 11.2 H Neutrophils % 85.3 H Lymphocytes % 6.1 L Monocytes % 5.2 Eosinophils % 3.3 D Basophils % 0.1 Sodium 141 Potassium 3.7 Chloride 105 Carbon Dioxide 28 Anion Gap 8 BUN 15 Creatinine 1.0 Creat Clearance w eGFR 52.20 Random Glucose 92 Calcium 8.1 L Total Bilirubin 0.6 D AST 22 ALT 17 Alkaline Phosphatase 36 L Total Protein 4.7 L Albumin 2.6 L Plan D/c home PO meds x5 days F/u with GI as outpt VNS Problem List - Problems (1) Colitis Code(s): K52.9 - NONINFECTIVE GASTROENTERITIS AND COLITIS, UNSPECIFIED (2) Temporal arteritis Code(s): M31.6 - OTHER GIANT CELL ARTERITIS
--- NOTE | 2016-07-04 08:10 | DS ---
Physical Examination Vital Signs: Vital Signs Temperature 98.2 F 07/04/16 05:05 Pulse Rate 90 07/04/16 05:05 Respiratory Rate 20 07/04/16 05:05 Blood Pressure 152/85 07/04/16 05:05 O2 Sat by Pulse Oximetry (%) 98 07/03/16 20:18 Constitutional: Yes: No Distress, Anxious Eyes: Yes: Conjunctiva Clear, EOM Intact HENT: Yes: Atraumatic, Normocephalic Neck: Yes: Supple, Trachea Midline Cardiovascular: Yes: Regular Rate and Rhythm Respiratory: Yes: Regular, CTA Bilaterally Gastrointestinal: Yes: Normal Bowel Sounds, Soft. No: Abdomen, Obese, Ascites, Palpable Mass, Tenderness ...Rectal Exam: Yes: Deferred Renal/: No: Anuria Breast(s): Yes: WNL Musculoskeletal: Yes: WNL Extremities: Yes: WNL Edema: No Integumentary: Yes: WNL Neurological: Yes: Alert. No: Oriented, Aphasia ...Motor Strength: WNL Psychiatric: Yes: Alert. No: Oriented, Agitated, Suicidal Ideation Labs: CBC, BMP 07/04/16 05:35 07/04/16 05:35 Discharge Summary Reason For Visit: Acute colitis, LGI bleed Current Active Problems Colitis (Acute) Dilated bile duct (Acute) Diverticulosis (Acute) Family history of colon cancer (Acute) Ischemic colitis (Acute) Rectal bleeding (Acute) - Instructions Referrals: Cain Stockton MD [Primary Care Provider] - Disposition: HOME - Home Medications Comprehensive Discharge Medication List: Ambulatory Orders Atenolol [Tenormin -] 50 mg PO DAILY 06/16/14 Hydralazine HCl 25 mg PO BID 06/16/14 Methotrexate [Mexate -] 5 tab PO Q7D 06/16/14 Prednisone [Deltasone -] 2.5 mg PO BID 06/16/14 Folic Acid 1 mg PO DAILY 12/29/15 Tramadol HCl 50 mg PO BID PRN 12/29/15 Aspirin [ASA -] 81 mg PO DAILY 06/30/16
[2016-07-04 08:13] VITALS: BP 151/87; PULSE 87
[2016-07-04] MEDS ORDERED: PT OWN MED DRAWER 7, Y5N ONE (09:05)
[2016-07-04] MEDS: hydrALAZINE HCL 25 MG TABLET (FP) PO SCH (11:24)
[2016-07-04] MEDS: predniSONE 5 MG TABLET (UD) PO SCH (11:24)
[2016-07-04] MEDS: LEVOFLOXACIN 250 MG IVPB 50 ML IVPB SCH (11:24)
[2016-07-04] MEDS: ATENOLOL 50 MG TABLET (FP) PO SCH (11:24)
[2016-07-04] MEDS: amLODIPine BESYLATE 5 MG TABLET (FP) PO SCH (11:24)
[2016-07-04] MEDS: FOLIC ACID 1 MG TABLET (FP) PO SCH (11:24)
== END 2016-07-04 13:06 | disposition home health service (06) | DRG 394 ==
LOC: JER 12:02 → JERBED 18:46 → UNDOADMOB 18:46 → OBSVTOIN 20:07 → JERBED 20:07 → J7W 21:12
PROVIDERS: ADMIT Internal Medicine; ATTEND Internal Medicine
DX: K55.9 Vascular disorder of intestine, unspecified (principal); K62.5 Hemorrhage of anus and rectum; I10 Essential (primary) hypertension; E78.5 Hyperlipidemia, unspecified; M31.6 Other giant cell arteritis; H54.41 Blindness, right eye, normal vision left eye; M81.8 Other osteoporosis without current pathological fracture; F03.90 Unspecified dementia, unspecified severity, without behavioral disturbance, psychotic disturbance, mood disturbance, and anxiety; M54.5 Low back pain; K57.90 Diverticulosis of intestine, part unspecified, without perforation or abscess without bleeding; N28.1 Cyst of kidney, acquired; D25.9 Leiomyoma of uterus, unspecified; K83.8 Other specified diseases of biliary tract; Z80.0 Family history of malignant neoplasm of digestive organs
CPT/HCPCS: 36415; 71010-TC; 74177-TC; 80053; 82150; 82272; 83690; 84100; 85025; 85027; 85610; 86301; 86850; 86900; 86901; 93005; 93010; 97116-GP; 97161-GP; 99284-25; J8610